=== PATIENT | female | born 1955 | race Caucasian/White ===

== ENCOUNTER 2023-10-08 05:52 | Observation (INO) | payer OTHER ==
[2023-10-01 09:47] LABS: BASOPHILS # (AUTO) 0.04 K/uL (0.00-0.20); BASOPHILS % (AUTO) 0.5 % (0.0-5.0); EOSINOPHILS # (AUTO) 0.18 K/uL (0.00-0.70); EOSINOPHILS % (AUTO) 2.1 % (0.0-8.0); HEMATOCRIT 36.9 % (36-48); IMMATURE GRANULOCYTE ABSOLUTE 0.03 K/uL (0-1); LYMPHOCYTES # (AUTO) 3.8 K/uL (1.0-4.8); LYMPHOCYTES % (AUTO) 45.2 % (21.0-51.0); MEAN CORPUSCULAR HEMOGLOBIN 30.8 pg (27.0-33.0); MEAN CORPUSCULAR HGB CONC 32.5 g/dL (32.0-36.0); MEAN CORPUSCULAR VOLUME 94.6 fL (79-99); MONOCYTES # (AUTO) 0.6 K/uL (0.1-1.0); MONOCYTES % (AUTO) 7.6 % (3.0-13.0); NEUTROPHILS # (AUTO) 3.7 K/uL (1.8-7.7); NEUTROPHILS % (AUTO) 44.2 % (40.0-77.0); PLATELET COUNT (AUTO) 265 K/uL (130-400); RED CELL DISTRIBUTION WIDTH 14.9 % (11.0-15.5); WHITE BLOOD COUNT (AUTO) 8.4 K/uL (4.8-10.8)
[2023-10-01 09:54] VITALS: BP 137/68; PULSE 61; RESP 14
[2023-10-01 10:01] LABS: ALBUMIN 3.3 g/dL (3.5-5.0); CREATININE 0.7 mg/dL (0.5-1.5); POTASSIUM 4.3 mmol/L (3.5-5.1)
[2023-10-01 10:03] LABS: INR 0.94 (0.85-1.15); PROTHROMBIN TIME 10.9 SEC (9.6-11.6)
[2023-10-01 10:04] LABS: PARTIAL THROMBOPLASTIN TIME 28.8 SEC (26.3-35.5)
[2023-10-01 10:22] LABS: ADD UA MICROSCOPIC YES; APPEARANCE,URINE CLEAR (CLEAR); BILIRUBIN,URINE NEGATIVE (NEGATIVE); COLOR,URINE LIGHT-YELLOW (YELLOW); GLUCOSE, URINE (UA) NEGATIVE (NEGATIVE); KETONES,URINE NEGATIVE (NEGATIVE); LEUKOCYTE ESTERASE ,URINE 250 Leu/uL (NEGATIVE); NITRATE,URINE NEGATIVE (NEGATIVE); OCCULT BLOOD,URINE NEGATIVE (NEGATIVE); PH,URINE 5.5 (5.0-8.0); PROTEIN,URINE NEGATIVE (NEGATIVE); UROBILINOGEN,URINE 0.2 mg/dL (0.2-1.0)
[2023-10-01 10:24] LABS: BACTERIA,URINE RARE /HPF (None Seen); RBC,URINE 0-1 /HPF (0-1); SQUAMOUS EPITHELIAL CELL,UR RARE /HPF (0-2)
[~2023-10-08] VITALS: Ht 162.6 cm; Wt 77.6 kg
[2023-10-08] VITALS (30 sets, daily range): BP systolic 117–158; BP diastolic 55–83; PULSE 66–91; RESP 12–20; O2SAT 95–98
[~2023-10-08 05:52] MED LIST: ATEN50TA PO; ATOR10 PO; CETI-89 PO; FLUO40CA7 PO; FLUT16H NASAL; LAMO100T16 PO; LISI2.5T13 PO; METF-444 PO; PRAZ1CAP5 PO; RISP2TAB86 PO; TRAZ-187 PO
[2023-10-08] MEDS ORDERED: 0.9%NACL 1000ML 1,000 ML IV ONE (06:19)
[2023-10-08] MEDS ORDERED: CEFAZOLIN SODIUM 2 GM VIAL ONE ×2 (06:19→15:38)
[2023-10-08] MEDS ORDERED: ROPIVACAINE 0.5% 5MG/ML 30ML ONE (06:32)
[2023-10-08] MEDS ORDERED: KETOROLAC 30MG VIAL (30MG/ML) ONE (06:32)
[2023-10-08] MEDS ORDERED: TRANEXAMIC ACID 1000MG/10ML ONE (06:32)
[2023-10-08] MEDS ORDERED: LIDOCAINE PF 100MG/5ML (2%) SYRINGE 5ML ONE (06:34)
[2023-10-08] MEDS ORDERED: DEXAMETHASONE SOD PHOSPHATE 10MG/ML 1ML VIAL ONE (06:34)
[2023-10-08] MEDS ORDERED: SUCCINYLCHOLINE CHLORIDE 20 MG/ML 10 ML VIAL ONE (06:34)
[2023-10-08] MEDS ORDERED: ONDANSETRON 4MG INJ ONE ×3 (06:35→09:48)
[2023-10-08] MEDS ORDERED: NEOSTIGMINE METHYLSULFATE 1MG/ML IV ONE (06:35)
[2023-10-08] MEDS ORDERED: FENTANYL CITRATE PF 50 MCG/1 ML 2ML VIAL ONE ×2 (06:35→07:36)
[2023-10-08] MEDS ORDERED: GLYCOPYRROLATE 0.2 MG/ML 5 ML VIAL ONE (06:35)
[2023-10-08] MEDS ORDERED: PROPOFOL 10 MG/ML 20ML VIAL IV ONE (06:35)
[2023-10-08] MEDS ORDERED: MIDAZOLAM HCL 1 MG/ML 2ML VIAL ONE (06:37)
[2023-10-08] MEDS ORDERED: ROCURONIUM BROMIDE 10MG/1ML 5ML VL ONE (06:37)
[2023-10-08] MEDS ORDERED: PHENYLEPHRINE HCL 10 MG/ML 1ML VIAL IV ONE (08:55)
[2023-10-08] MEDS ORDERED: TRANEXAMIC ACID 1000MG/10ML IV ONE (09:11)
[2023-10-08] MEDS ORDERED: MEPERIDINE-PF 25 MG/ML SYG ONE ×2 (09:12→09:49)
[2023-10-08] MEDS ORDERED: KCL 20 MEQ ERTAB PO PRN (09:30)
[2023-10-08] MEDS ORDERED: POTASSIUM CHLORIDE 10% ELIXIR 20 MEQ/15 ML UDCUP PO PRN (09:30)
[2023-10-08] MEDS ORDERED: DiphenhydrAMINE HCL 50 MG/ML VIAL IVP PRN (09:30)
[2023-10-08] MEDS ORDERED: CYCLOBENZAPRINE HCL 10 MG TABLET PO PRN (09:30)
[2023-10-08] MEDS ORDERED: FERROUS FUMARATE 324 MG TABLET PO PRN (09:30)
[2023-10-08] MEDS ORDERED: CALCIUM CARB 500MG PO PRN (09:30)
[2023-10-08] MEDS ORDERED: POTASSIUM CHLORIDE 20MEQ/100ML 100 ML IV PRN (09:30)
[2023-10-08] MEDS: 0.9%NACL 1000ML 1,000 ML IV SCH ×2 (09:30→19:30)
[2023-10-08] MEDS ORDERED: ONDANSETRON 4MG INJ IVP PRN (09:30)
[2023-10-08] MEDS ORDERED: HYDROCODONE/ACETAMINOPHEN 5/325 MG TAB ONE ×2 (11:39→16:14)
[2023-10-08] MEDS ORDERED: KETOROLAC 15MG/ML VIAL (15MG/ML) ONE (13:09)
[2023-10-08] MEDS ORDERED: TRAMADOL HCL 50 MG TABLET ONE (13:09)
[2023-10-08] MEDS: TRAMADOL HCL 50 MG TABLET PO PRN (13:10)
[2023-10-08] MEDS: KETOROLAC 15MG/ML VIAL (15MG/ML) IV SCH ×2 (13:11→19:53)
[2023-10-08] MEDS: GABAPENTIN 100 MG CAPSULE PO SCH ×2 (14:00→19:52)
[2023-10-08] MEDS: CEFAZOLIN SODIUM 2 GM VIAL IVPB SCH ×2 (15:41→19:51)
[2023-10-08] MEDS: INSULIN HUMULIN R 100 UNIT/ML 3ML SQ SCH ×2 (16:30→21:00)
[2023-10-08] MEDS ORDERED: FLUTICASONE PROPIONATE 50MCG/SPRAY 16 GM BOTTLE NS PRN (19:00)
[2023-10-08] MEDS ORDERED: CETIRIZINE HCL 5 MG TABLET PO PRN (19:30)
[2023-10-08] MEDS: DOCUSATE SODIUM 100 MG CAP PO SCH (19:52)
[2023-10-08] MEDS: METFORMIN HCL 500 MG TABLET PO SCH (19:53)
[2023-10-08] MEDS ORDERED: TRAZODONE HCL 100 MG TABLET PO SCH (21:00)
[2023-10-08] MEDS ORDERED: PRAZOSIN HCL 1 MG PO SCH (21:00)
[2023-10-08] MEDS ORDERED: RISPERIDONE 1 MG TABLET PO SCH (21:00)
[2023-10-08] MEDS ORDERED: ATORVASTATIN 20 MG TABLET PO SCH (21:00)
[2023-10-09 00:28] VITALS: BP 138/69; PULSE 86; RESP 18
[2023-10-09] MEDS: HYDROCODONE/ACETAMINOPHEN 5/325 MG TAB PO PRN ×3 (00:32→16:35)
[2023-10-09] MEDS: KETOROLAC 15MG/ML VIAL (15MG/ML) IV SCH (01:11)
[2023-10-09] MEDS: TRAMADOL HCL 50 MG TABLET PO PRN (03:55)
[2023-10-09 04:08] VITALS: BP 106/75; PULSE 96; RESP 18
[2023-10-09 04:37] LABS: HEMATOCRIT 27.7 % (36-48); MEAN CORPUSCULAR HEMOGLOBIN 30.5 pg (27.0-33.0); MEAN CORPUSCULAR HGB CONC 33.2 g/dL (32.0-36.0); MEAN CORPUSCULAR VOLUME 91.7 fL (79-99); RED BLOOD CELL COUNT(AUTO) 3.02 MIL/uL (4.00-5.50); RED CELL DISTRIBUTION WIDTH 15.1 % (11.0-15.5); WHITE BLOOD COUNT (AUTO) 10.8 K/uL (4.8-10.8)
[2023-10-09 04:44] LABS: CREATININE 0.8 mg/dL (0.5-1.5); POTASSIUM 3.1 mmol/L (3.5-5.1)
[2023-10-09] MEDS: INSULIN HUMULIN R 100 UNIT/ML 3ML SQ SCH ×3 (04:46→16:30)
[2023-10-09] MEDS ORDERED: KETOROLAC 15MG/ML VIAL (15MG/ML) ONE (04:54)
[2023-10-09 08:00] VITALS: BP 114/65; PULSE 96; RESP 16
[2023-10-09 08:25] VITALS: O2SAT 95
[2023-10-09] MEDS ORDERED: LISINOPRIL 2.5 MG TABLET PO SCH (09:00)
[2023-10-09] MEDS ORDERED: LAMOTRIGINE 100 MG TABLET PO SCH (09:00)
[2023-10-09] MEDS ORDERED: POLYETHYLENE GLYCOL 3350 17 GM POWD.PACK PO SCH (09:00)
[2023-10-09] MEDS ORDERED: ASPIRIN 325MG EC TAB PO SCH (09:00)
[2023-10-09] MEDS ORDERED: ATENOLOL 50 MG TABLET PO SCH (09:00)
[2023-10-09] MEDS: DOCUSATE SODIUM 100 MG CAP PO SCH (09:01)
[2023-10-09] MEDS: METFORMIN HCL 500 MG TABLET PO SCH (09:01)
[2023-10-09] MEDS ORDERED: KETOROLAC 15MG/ML VIAL (15MG/ML) IV PRN (09:30)
[2023-10-09 12:00] VITALS: BP 147/66; PULSE 88; RESP 19
[2023-10-09 16:27] VITALS: BP 163/77; PULSE 93; RESP 19
[2023-10-09] MEDS ORDERED: FLUOXETINE HCL 20 MG CAPSULE PO SCH (17:00)
[2023-10-09] MEDS ORDERED: ASPI-891 PO (17:51)
[2023-10-09] MEDS ORDERED: CYCL-309 PO (17:51)
[2023-10-09] MEDS ORDERED: HYDR-4060 PO (17:51)
[2023-10-09] MEDS ORDERED: DOCU-116 PO (17:51)
[2023-10-11] MEDS ORDERED: BISACODYL 10 MG SUPP.RECT RC PRN (09:30)
== END 2023-10-09 18:35 | disposition home health service (06) ==
LOC: DAH 05:52 → DAHIP 05:53 → DAH 05:53 → 4BH 16:46
PROVIDERS: ADMIT Student in an Organized Health Care Education/Training Program; ATTEND Student in an Organized Health Care Education/Training Program
DX: M17.12 Unilateral primary osteoarthritis, left knee (principal); F41.8 Other specified anxiety disorders; F43.10 Post-traumatic stress disorder, unspecified; E11.9 Type 2 diabetes mellitus without complications; Z79.899 Other long term (current) drug therapy
CPT/HCPCS: 82040; 80048 ×2; 85025; 85610; 85730; 87077; 87088; 87186; 84134; 86140; 81001; 36415 ×2; 93005; 87641; 64447; 96376 ×2; 96365; 96366; 96375; 27447; 82948 ×8; 73560; 97161; 97116 ×3; 97530 ×10; 85027; G0378 ×26; A4663; J7030 ×2; A4215 ×2; J3010 ×2; J3490 ×4; J1100; J0330; J2001; J2250; J2704; J2405 ×3; J1885 ×5; J2710; J2175 ×2; J2795; J2371; J0690 ×4; C1713 ×2; G0168; A4649 ×3; C1776; A6255; A5120; A4223; A4222; A4221